=== PATIENT | female | born 1995 | race Caucasian/White ===

== ENCOUNTER 2016-06-26 15:32 | Emergency (ER) | payer MEDICAID, OTHER ==
[~2016-06-26] VITALS: Ht 165.1 cm; Wt 58.0 kg
[2016-06-26 15:37] VITALS: Ht 165.1 cm; Wt 58.0 kg
[2016-06-26 16:54] LABS: URINE BLOOD (Dip) POC Trace-lysed (NEGATIVE)
--- NOTE | 2016-06-26 17:46 | RADRPT ---
PROCEDURE: OBSTETRICAL ULTRASOUND WITH ENDOVAGINAL IMAGES CLINICAL INDICATION: Vaginal Bleed () TECHNIQUE: Multiple sonographic images of the pelvis were obtained utilizing a transabdominal and endovaginal technique. The images were reviewed on a PACS workstation. COMPARISON: None. LMP: 05/23/2016 Gestational age by LMP: 4 weeks, 6 days FINDINGS: A possible intrauterine gestational sac is identified with mean sac diameter of 1.00 cm which would be consistent with a gestational age of 5 weeks, 4 days and an estimated date of delivery of 017 . A possible yolk sac is identified within it, but no pole. The right ovary measures 3.2 x 1.7 x 2.0 cm. The left ovary measures 6.1 x 4.3 x 5.7 cm. There is no rmal vascular flow in both ovaries. There is a heterogeneous lesion in the left ovary with moderate peripheral vascular flow and posteri or acoustic enhancement, possibly indicating that it is cystic, measuring up to 4.4 cm. No signific ant vascular flow is identified within it. There is small free fluid in the left adnexa. IMPRESSION: A possible intrauterine gestational sac is identified which would be consistent with a gestational a ge of 5 weeks, 4 days . A possible yolk sac is identified within it, but no pole. Findings ar e likely due to an early intrauterine although an ectopic is not excluded. Shor t-term follow-up ultrasound and serial Beta HCG measurements are recommended for further evaluation. 4.4 cm complex cystic lesion in the left ovary is nonspecific and may be a hemorrhagic or corpus lut eal cyst or, alternatively, a dermoid cyst. Attention on follow-up is recommended. RPTAT: EE Ventura Mena Physician Date Time Electronically viewed and signed by Ventura Mena Physician on 06/26/2016 17:46 /
[2016-06-26] MEDS ORDERED: ACETAMINOPHEN 500 MG TAB PO STA (18:04)
[2016-06-26] MEDS ORDERED: CEPH-443 PO (18:07)
[2016-06-26] MEDS ORDERED: ACET500C5 PO (18:07)
[2016-06-26] MEDS ORDERED: PRENAT PO (18:07)
--- NOTE | 2016-06-26 18:16 | ERD ---
ER Documentation Chief Complaint Date/Time DATE: 06/26/16 TIME: 18:13 Chief Complaint PAIN W/URINATION X2 DAYS HPI This 20-year-old female presents with dysuria for last 2 days. Her last menstrual period was possibly 5 weeks ago. She is uncertain she is . She has mild generalized suprapubic pain without fevers, vomiting, or localized right-sided abdominal pain. ROS All systems reviewed and are negative except as per history of present illness. Medications Home Meds Active Scripts Multivit/Min/Fol Ac/Iron/Pren* ( S*) 1 Tab Tab, 1 TAB PO DAILY, #90 TAB Prov:URSULA WHITMAN MD 06/26/16 Acetaminophen* (Tylophen*) 500 Mg Capsule, 1 CAP PO Q6H Y for PAIN AND OR ELEVATED TEMP, #15 CAP Prov:URSULA WHITMAN MD 06/26/16 Cephalexin* (Keflex*) 500 Mg Capsule, 500 MG PO QID for 5 Days, CAP Prov:URSULA WHITMAN MD 06/26/16 Allergies Allergies: Coded Allergies: No Known Allergy (Unverified , 06/26/16) PMhx/Soc Medical and Surgical Hx: pt denies Medical Hx, pt denies Surgical Hx Hx Alcohol Use: No Hx Substance Use: No Hx Tobacco Use: No Physical Exam Vitals Vital Signs Date Time Temp Pulse Resp B/P Pulse Ox O2 Delivery O2 Flow Rate FiO2 06/26/16 15:37 96.9 88 20 136/82 100 Physical Exam Const: [] Alert, [id number] per Head: Atraumatic Eyes: Normal Conjunctiva ENT: Normal External Ears, Nose and Mouth. Neck: Full range of motion..~ No meningismus. Resp: Clear to auscultation bilaterally Cardio: Regular rate and rhythm, no murmurs Abd: Soft, mild suprapubic tenderness no exquisite tenderness at McBurney's point no Hawley sign. R, non distended. Normal bowel sounds Skin: No petechiae or rashes Back: No midline or flank tenderness Ext: No cyanosis, or edema Neur: Awake and alert Psych: Normal Mood and Affect Results 24 hrs Laboratory Tests Test 06/26/16 16:53 06/26/16 17:10 Bedside Urine pH (LAB) 5.5 Bedside Urine Protein (LAB) Negative Bedside Urine Glucose (UA) Negative Bedside Urine Ketones (LAB) Negative Bedside Urine Blood Trace-lysed Bedside Urine Nitrite (LAB) Positive Bedside Urine Leukocyte Esterase (L Trace Beta HCG, Quantitative 38070.0mIU/ml Current Medications Medications (Trade) Dose Ordered Sig/Liss Route PRN Reason Start Time Stop Time Status Last Admin Dose Admin Cephalexin (Keflex) 500 mg ONCE ONCE PO 06/26/16 18:30 06/26/16 18:31 Acetaminophen (Tylenol Tab) 500 mg ONCE STAT PO 06/26/16 18:04 06/26/16 18:06 DC Procedures/MDM Urine shows leukocytes and hemoglobin. HCG is positive. The uncertain cause of lower abdominal pain and new or incidental quantitative hCG was performed which is 11,600. Pelvic ultrasound shows intrauterine gestational sac and possibly yolk sac. There is adnexal cyst consistent with a hemorrhagic cyst as well. Intrauterine sac appears to be a 5 week intrauterine . Patient has signs of cystitis and was given Keflex will be discharged home with prescription of Keflex and Tylenol. Patient has incidental with early intrauterine gestational sac and possible yolk sac although ectopic cannot be completely ruled out. Patient was discharged home with a prescription of Keflex, Tylenol 6 for recheck in 2 days for evaluation for intrauterine versus possible ectopic Departure Diagnosis: Primary Impression: Pelvic pain affecting Additional Impression: UTI (urinary tract infection) Urinary tract infection type: acute cystitis Hematuria presence: without hematuria Qualified Code: N30.00 - Acute cystitis without hematuria Condition: Stable Patient Instructions: Understanding Urinary Tract Infections (UTIs), Abdominal Pain, Early Referrals: [employer] [place] [id number] [facility] [address] [place] [phone] [place] [address] [address]IVING[address]YNWOOD [address] [place], [place] [phone] KATHY VITALE [address] [facility], [address] [place] [address] [address] JEFFERSON [address] [facility] [place], [place] [phone] [facility] [address] [place] [address] [facility] [id number] - [address] CARREON, [place] [address], [facility] [address] [address] LYONS, [place] [address] [facility], [place] [address] [address] SANDERS, [facility] [address] [place], [place] [phone] Additional Instructions: CHEQU EXAMINES OTRO VEX 2-3 MELLO. ANNA INFECCION EN ORINA TAMBIEN. URSULA WHITMAN MD Jun 26, 2016 18:16
[2016-06-26] MEDS ORDERED: CEPHALEXIN 500 MG CAP PO ONE (18:30)
== END 2016-06-26 18:19 | disposition home or self-care (01) ==
LOC: FTE 15:32
DX: R10.2 Pelvic and perineal pain (principal); N30.00 Acute cystitis without hematuria
CPT/HCPCS: 76801; 76817; 81003; 84702; Z7502; Z7610